=== PATIENT | male | born 1975 | race Caucasian/White ===

== ENCOUNTER → 2021-04-04 | Outpatient (CLI) | payer BC ==
[~2021-04-04] MED LIST: MUCINEX TA600 MG/TA2; TESSALON PERLE100 MG PO; VENTOLIN HFA 1818 GM INH; ZPAK PO
== END ==
LOC: HYPER 07:37
PROVIDERS: ATTEND Specialist
DX: S71.002A Unspecified open wound, left hip, initial encounter (principal); L98.492 Non-pressure chronic ulcer of skin of other sites with fat layer exposed; C84.00 Mycosis fungoides, unspecified site; J45.909 Unspecified asthma, uncomplicated; F17.200 Nicotine dependence, unspecified, uncomplicated; X58.XXXA Exposure to other specified factors, initial encounter; Y93.89 Activity, other specified; Y92.89 Other specified places as the place of occurrence of the external cause; Y99.8 Other external cause status

== ENCOUNTER → 2021-04-11 | Outpatient (CLI) | payer BC | LOC: HYPER 07:48 | PROVIDERS: ATTEND Specialist | DX: S71.002D Unspecified open wound, left hip, subsequent encounter (principal); L98.492 Non-pressure chronic ulcer of skin of other sites with fat layer exposed; C84.00 Mycosis fungoides, unspecified site; J45.909 Unspecified asthma, uncomplicated; F17.200 Nicotine dependence, unspecified, uncomplicated; X58.XXXD Exposure to other specified factors, subsequent encounter ==